=== PATIENT | male | born 1995 | race Caucasian/White ===

== ENCOUNTER 2017-01-15 10:56 | Emergency (ER) | payer OTHER ==
[~2017-01-15] VITALS: Ht 167.6 cm; Wt 74.8 kg
[2017-01-15] MEDS ORDERED: ZOFR4TAB3 PO (12:38)
[2017-01-15 12:51] VITALS: BP 126/79
[2017-01-15] MEDS ORDERED: ONDANSETRON 4 MG ORAL DISINTEGRATING TAB (S0181) PO ONE (13:00)
== END 2017-01-15 12:59 | disposition home or self-care (01) ==
LOC: M ED 12:22
DX: R10.84 Generalized abdominal pain (principal); R11.0 Nausea; R19.7 Diarrhea, unspecified; Z91.013 Allergy to seafood

== ENCOUNTER 2017-03-10 07:03 | Emergency (ER) | payer OTHER ==
[~2017-03-10] VITALS: Ht 167.6 cm; Wt 75.0 kg
[~2017-03-10 07:03] MED LIST: ZOFR4TAB3 PO
[2017-03-10] MEDS ORDERED: ALLE4TAB9 PO (07:17)
[2017-03-10] MEDS ORDERED: DICYCLOMINE INJ 20MG/2ML (J0500) IM ONE (07:45)
[2017-03-10] MEDS ORDERED: KETOROLAC 30 MG/ML VIAL (J1885) IV ONE (07:45)
[2017-03-10 08:18] LABS: BASO % 0.6 % (0.0-1.0); EOS # 0.2 K/mm3 (0.0-0.50); LARGE UNSTAINED CELL # 0.2 K/mm3 (0.0-0.4); LARGE UNSTAINED CELL % 2.5 % (0.0-4.0); LYMPH # 2.3 K/mm3 (1.5-6.5); LYMPH % 33.7 % (24.0-44.0); MEAN CORPUSCULAR HEMOGLOBIN 32.5 pg (27.0-33.0); MEAN CORPUSCULAR HGB CONC 35.3 g/dl (32.0-36.5); MEAN CORPUSCULAR VOLUME 92.1 fl (80.0-96.0); MONO # 0.4 K/mm3 (0.0-0.8); MONO % 6.9 % (0.0-5.0); NEUTROPHILS # 3.3 K/mm3 (1.8-7.7); NEUTROPHILS % 53.4 % (36.0-66.0); PLATELET COUNT, AUTOMATED 282 k/mm3 (150-450); RED CELL DISTRIBUTION WIDTH 11.8 % (11.5-14.5); WHITE BLOOD COUNT 6.2 K/mm3 (4.0-10.0)
[2017-03-10 08:27] LABS: ALBUMIN 3.9 GM/DL (3.2-5.2); ALBUMIN/GLOBULIN RATIO 1.26 (1.00-1.93); ALKALINE PHOSPHATASE 74 U/L (45-117); ALT/SGPT 31 U/L (12-78); ANION GAP 8 MEQ/L (8-16); AST/SGOT 15 U/L (15-37); BILIRUBIN,DIRECT 0.1 MG/DL (0.0-0.2); BILIRUBIN,TOTAL 0.5 MG/DL (0.2-1.0); BLOOD UREA NITROGEN 13 MG/DL (7-18); CALCIUM LEVEL 8.7 MG/DL (8.5-10.1); CARBON DIOXIDE LEVEL 26 MEQ/L (21-32); CHLORIDE LEVEL 107 MEQ/L (98-107); CREATININE FOR GFR 0.79 MG/DL (0.70-1.30); GLOMERULAR FILTRATION RATE > 60.0 (>60); GLUCOSE, FASTING 85 MG/DL (70-105); POTASSIUM SERUM 3.5 MEQ/L (3.5-5.1); SODIUM LEVEL 141 MEQ/L (136-145)
[2017-03-10] MEDS ORDERED: ONDANSETRON 4MG/2ML VIAL (J2405) IV ONE (10:15)
[2017-03-10 10:37] VITALS: BP 127/64
[2017-03-10] MEDS ORDERED: BENT20TA PO (10:46)
== END 2017-03-10 10:54 | disposition home or self-care (01) ==
LOC: M ED 08:00
DX: R19.7 Diarrhea, unspecified (principal); R10.33 Periumbilical pain; J30.2 Other seasonal allergic rhinitis; F17.200 Nicotine dependence, unspecified, uncomplicated; Z91.013 Allergy to seafood; Z79.899 Other long term (current) drug therapy
CPT/HCPCS: 36415; 80048; 80076; 81001; 83690; 85025; 96372; 96374; 96375; 99283; J0500; J1885; J2405

== ENCOUNTER 2017-06-05 09:08 | Emergency (ER) | payer OTHER ==
[~2017-06-05] VITALS: Ht 167.6 cm; Wt 78.9 kg
[~2017-06-05 09:08] MED LIST changes: +ALLE4TAB9 PO; +BENT20TA PO
[2017-06-05] MEDS ORDERED: NS 1,000 ML IV ONE (10:15)
[2017-06-05] MEDS ORDERED: GASTROGRAFIN SOLUTION 30ML (Q9963) As Ordered ONE (10:24)
[2017-06-05] MEDS ORDERED: GASTROGRAFIN SOLUTION 30ML PO ONE (10:25)
[2017-06-05 10:28] LABS: EOS # 0.1 K/mm3 (0.0-0.50)
[2017-06-05 10:34] LABS: EOS % 1.5 % (0.0-3.0); LARGE UNSTAINED CELL % 3.5 % (0.0-4.0); LYMPH # 1.4 K/mm3 (1.5-6.5); LYMPH % 25.6 % (24.0-44.0); MEAN CORPUSCULAR HEMOGLOBIN 31.9 pg (27.0-33.0); MEAN CORPUSCULAR HGB CONC 35.1 g/dl (32.0-36.5); MEAN CORPUSCULAR VOLUME 90.9 fl (80.0-96.0); MONO # 0.5 K/mm3 (0.0-0.8); MONO % 9.4 % (0.0-5.0); NEUTROPHILS # 3.2 K/mm3 (1.8-7.7); NEUTROPHILS % 59.1 % (36.0-66.0); PLATELET COUNT, AUTOMATED 271 k/mm3 (150-450); RED CELL DISTRIBUTION WIDTH 11.5 % (11.5-14.5); WHITE BLOOD COUNT 5.3 K/mm3 (4.0-10.0)
[2017-06-05 10:35] LABS: BASO # 0.1 K/mm3 (0.0-0.2); LARGE UNSTAINED CELL # 0.2 K/mm3 (0.0-0.4)
[2017-06-05 10:45] LABS: ALBUMIN 3.9 GM/DL (3.2-5.2); ALBUMIN/GLOBULIN RATIO 1.15 (1.00-1.93); ALKALINE PHOSPHATASE 89 U/L (45-117); ALT/SGPT 32 U/L (12-78); ANION GAP 7 MEQ/L (8-16); AST/SGOT 14 U/L (15-37); BILIRUBIN,DIRECT 0.1 MG/DL (0.0-0.2); BILIRUBIN,TOTAL 0.5 MG/DL (0.2-1.0); BLOOD UREA NITROGEN 17 MG/DL (7-18); CARBON DIOXIDE LEVEL 28 MEQ/L (21-32); CHLORIDE LEVEL 106 MEQ/L (98-107); CREATININE FOR GFR 0.88 MG/DL (0.70-1.30); GLOMERULAR FILTRATION RATE > 60.0 (>60); GLUCOSE, FASTING 82 MG/DL (70-105); POTASSIUM SERUM 3.9 MEQ/L (3.5-5.1); SODIUM LEVEL 141 MEQ/L (136-145); TOTAL PROTEIN 7.3 GM/DL (6.4-8.2)
[2017-06-05] MEDS ORDERED: GASTROGRAFIN SOLUTION 30ML (Q9963) PO ONE (10:55)
[2017-06-05] MEDS ORDERED: ISOVUE-370 76% 100ML VIAL (Q9967) As Ordered ONE (11:42)
--- NOTE | 2017-06-05 12:18 | REP ---
CT of the abdomen pelvis with IV and bowel contrast: There are no comparison studies. The visualized lung hart are unremarkable. The hepatic parenchyma is unremarkable. The gallbladder is unremarkable. The pancreas and spleen are unremarkable. The adrenals and kidneys are unremarkable. The abdominal aorta is unremarkable. There is no bowel distension. No small bowel or large bowel wall thickening or inflammation. The mesentery is unremarkable. Pelvis: The appendix is unremarkable, seen to best advantage on the coronal views. The terminal ileum is unremarkable. There is no ascites or adenopathy. The colonic bowel loops are unremarkable. The bladder is unremarkable. Impression: Essentially negative CT study of the abdomen pelvis. There is no bowel distension or inflammation. No ascites. No bowel wall thickening. There is no adenopathy. No mesenteric inflammatory changes. Signed by Stephen Masterson MD 06/05/2017 12:09 P
[2017-06-05 12:22] VITALS: BP 107/56
== END 2017-06-05 12:26 | disposition home or self-care (01) ==
LOC: M ED 09:08
DX: S39.011A Strain of muscle, fascia and tendon of abdomen, initial encounter (principal); X58.XXXA Exposure to other specified factors, initial encounter; Y92.89 Other specified places as the place of occurrence of the external cause; Y93.89 Activity, other specified; Y99.8 Other external cause status; Z91.013 Allergy to seafood
CPT/HCPCS: 74177; 80048; 80076; 81001; 83690; 85025; 96360; 99283; Q9963; Q9967